=== PATIENT | female | born 1945 | race Caucasian/White ===

== ENCOUNTER 2019-06-01 07:09 | Emergency (ER) | payer MEDICARE ==
[~2019-06-01] VITALS: Ht 157.5 cm; Wt 86.2 kg
--- OUTSIDE RECORDS SUMMARY | 2019-06-01 07:12 | XMS REPORT | Continuity of Care Document ---
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 Role Phone [employer] Unavailable Unavailable Problems Problem Status Onset Date Classification Date Reported Comments Source Simple obesity Active Problem 05/20/2019 [facility] Medications Medication Details Route Status Patient Instructions Ordering Provider Order Date Source amLODIPine 10 mg oral tablet 10 mg=1 tab, PO, Daily, # 30 tab, 0 Refill(s) Active 03/03/2019 [facility] solifenacin 5 mg oral tablet 5 mg=1 tab, PO, Daily, 0 Refill(s) Active 03/03/2019 [facility] lisinopril 5 mg oral tablet 5 mg=1 tab, PO, Daily, 0 Refill(s) Active 03/03/2019 [facility] levothyroxine 112 mcg (0.112 mg) oral tablet 112 microgram=1 tab, PO, Daily, 0 Refill(s) Active 03/03/2019 [facility] ibuprofen 800 mg oral tablet 800 mg=1 tab, PO, TID, 0 Refill(s) Active 03/03/2019 [facility] denosumab 60 mg/mL subcutaneous solution 60 mg=1 mL, SUB- Q, ONCE, Repeat every 6 months, # 1 mL, 0 Refill(s) Active 03/03/2019 [facility] albuterol 90 mcg/inh inhalation aerosol 2 puff, INHALATION, QID, 0 Refill(s) Active 03/03/2019 [facility] FLUoxetine 20 mg oral capsule 20 mg=1 cap, PO, Daily, # 30 cap, 0 Refill(s) Active 03/03/2019 [facility] Allergies, Adverse Reactions, Alerts Substance Category Reaction Severity Reaction type Status Date Reported Comments Source No Known Medication Allergies Assertion Drug allergy [facility] Immunizations No Data Provided for This Section Results No Data Provided for This Section Pathology Reports No Data Provided for This Section Diagnostic Reports Report Value Date Source Bone Density DXA [employer] MA BONE DENSITY ASSESSMENT: 05/15/2019 CLINICAL DATA: Post menopausal. M81.0 Age related osteoporosis without current pathological fracture. M81.0 Age-Related Osteoporosis Without Current Pathological Fracture/M81.0 FINDINGS: Bone density evaluation was performed 05/15/2019 on the right femur neck using a Hologic unit. The BMD average for the exam is 0.484 g/cm2. The T-score is -3.30 and the Z-score is -1.20. This matches the World Health Organization's criteria for osteoporosis and places the patient at a high risk for fracture. An additional bone density evaluation was performed 05/15/2019 on the left femur neck using a Hologic unit. The BMD average for the exam is 0.524 g/cm2. The T- score is -2.90 and the Z-score is -0.90. This matches the World Health Organization's criteria for osteoporosis and places the patient at a high risk for fracture. An additional bone density evaluation was performed 05/15/2019 on the right hip using a Hologic unit. The BMD average for the exam is 0.682 g/cm2. The T-score is -2.10 and the Z-score is -0.40. This matches the World Health Organization's criteria for osteopenia and places the patient at a medium risk for fracture. An additional bone density evaluation was performed 05/15/2019 on the left hip using a Hologic unit. The BMD average for the exam is 0.708 g/cm2. The T-score is -1.90 and the Z-score is -0.20. This matches the World Health Organization's criteria for osteopenia and places the patient at a medium risk for fracture. An additional bone density evaluation was performed 05/15/2019 on the AP L1-L4 region of spine using a Hologic unit. The BMD average for the exam is 0.859 g/cm2. The T-score is -1.70 and the Z-score is 0.60. This matches the World Health Organization's criteria for osteopenia and places the patient at a medium risk for fracture. IMPRESSION: OSTEOPOROSIS Patient is at high risk for fracture. Patient consult w/primary care provider is recommended. Dangelo Loza D.O., mdl/mayuri:05/17/2019 09:33:35 Lunch Cook(s): Alem Huff [facility] [place] 05/15/2019 [facility] [place] Consultation Notes No Data Provided for This Section Discharge Summaries No Data Provided for This Section History and Physicals No Data Provided for This Section Vital Signs Vital Sign Value Date Comments Source BMI Calculated 35.63 04/23/2019 [facility] Height 154.94 cm 04/23/2019 [facility] Weight 85.545 04/23/2019 [facility] Respitory Rate 17 04/23/2019 [facility] Temperature Oral (F) 97.9 F 04/23/2019 [facility] Systolic (mm Hg) 116 04/23/2019 [facility] Diastolic (mm Hg) 72 04/23/2019 [facility] Heart Rate 63 04/23/2019 [facility] BMI Calculated 34.53 03/03/2019 [facility] Weight 85.625 03/03/2019 [facility] Temperature Oral (F) 98.1 F 03/03/2019 [facility] Respitory Rate 17 03/03/2019 [facility] Heart Rate 65 03/03/2019 [facility] Systolic (mm Hg) 138 03/03/2019 [facility] Diastolic (mm Hg) 67 03/03/2019 [facility] Height 157.48 cm 03/03/2019 [facility] Encounters Location Location Details Encounter Type Encounter Number Reason For Visit Attending Provider ADM Date DC Date Status Source Outpatient [id number] Bing Regalado 03/03/2019 [facility] [place] [facility] Outpatient [id number] Bing Regalado 03/03/2019 03/04/2019 [facility] [place] [facility] Between Visit [id number] 03/07/2019 03/08/2019 [facility] Outpatient [id number] Bing Saderek 04/23/2019 [facility] [place] [facility] Outpatient [id number] Bing Regalado 04/23/2019 04/24/2019 [facility] Group [facility] [place] [facility] [id number] Bing Regalado 05/15/2019 05/16/2019 [facility] [place] [facility] [place] [facility] Between Visit [id number] 05/18/2019 05/19/2019 [facility] Procedures Procedure Code Date Perfomer Comments Source Bone density scan [id number] [facility] Bone density scan [id number] [facility] [place] Assessment and Plan No Data Provided for This Section Plan of Care No Data Provided for This Section Social History Social History Date Source Social History TypeResponse Smoking Status Never smoker; Exposure to Tobacco Smoke None; Cigarette Smoking Last 365 Days No; Reg Smoking Cessation Counseling No entered on: 04/23/19 04/23/2019 [facility] Social History TypeResponse Smoking Status Never smoker; Exposure to Tobacco Smoke None; Cigarette Smoking Last 365 Days No; Reg Smoking Cessation Counseling No entered on: 04/23/19 04/23/2019 [facility] Family History No Data Provided for This Section Advance Directives No Data Provided for This Section Functional Status No Data Provided for This Section
--- OUTSIDE RECORDS SUMMARY | 2019-06-01 07:12 | XMS REPORT | Summary of Care ---
Author Author [facility] Primary Care [facility] Address Unknown Phone Unavailable Encounter HQ Mosher_amada(GLENN) [id number] Date(s): 03/03/19 - 03/03/19 [facility] [place] [facility] [address] [address] [place] [address]- [phone] Discharge Disposition: Home or Self Care Attending Physician: Bing Regalado MD Vital Signs Most recent to 1 oldest [Reference Range]: Height 157.48 cm (03/03/19 8:46 AM) Temperature Oral 98.1 DegF [96.4-99.1 DegF] (03/03/19 8:46 AM) Blood Pressure 138/67 mmHg [90-140/60-90 mmHg] (03/03/19 8:46 AM) Respiratory Rate 17 BRMIN [14-20 BRMIN] (03/03/19 8:46 AM) Peripheral Pulse 65 bpm Rate [60-100 bpm] (03/03/19 8:46 AM) Weight 85.625 kg (03/03/19 8:46 AM) Body Mass Index 34.53 m2 (03/03/19 8:46 AM) Problem List Condition Effective Dates Status Health Status Informant Simple Active obesity(Confirmed) Allergies, Adverse Reactions, Alerts No Known Medication Allergies Medications albuterol 90 mcg/inh inhalation aerosol 2 puff, INHALATION, QID, 0 Refill(s) Start Date: 03/03/19 Status: Ordered amLODIPine 10 mg oral tablet 10 mg=1 tab, PO, Daily, # 30 tab, 0 Refill(s) Start Date: 03/03/19 Status: Ordered denosumab 60 mg/mL subcutaneous solution 60 mg=1 mL, SUB-Q, ONCE, Repeat every 6 months, # 1 mL, 0 Refill(s) Start Date: 03/03/19 Status: Ordered FLUoxetine 20 mg oral capsule 20 mg=1 cap, PO, Daily, # 30 cap, 0 Refill(s) Start Date: 03/03/19 Status: Ordered ibuprofen 800 mg oral tablet 800 mg=1 tab, PO, TID, 0 Refill(s) Start Date: 03/03/19 Status: Ordered levothyroxine 112 mcg (0.112 mg) oral tablet 112 microgram=1 tab, PO, Daily, 0 Refill(s) Start Date: 03/03/19 Status: Ordered lisinopril 5 mg oral tablet 5 mg=1 tab, PO, Daily, 0 Refill(s) Start Date: 03/03/19 Status: Ordered solifenacin 5 mg oral tablet 5 mg=1 tab, PO, Daily, 0 Refill(s) Start Date: 03/03/19 Status: Ordered Results No data available for this section Immunizations No data available for this section Procedures Procedure Date Related Diagnosis Body Site Status Bone density scan Completed Social History Social History Type Response Smoking Status Never smoker; Exposure to Tobacco Smoke None; Cigarette Smoking Last 365 Days No; Reg Smoking Cessation Counseling No entered on: 03/03/19 Assessment and Plan No data available for this section
--- OUTSIDE RECORDS SUMMARY | 2019-06-01 07:12 | XMS REPORT | Summary of Care ---
Author Author [facility] Primary Care [place] [facility] Organization [facility] Primary [facility] [place] [facility] Address Unknown Phone Unavailable Encounter HQ Encntr_alipatricia(FIN) [id number] Date(s): 04/23/19 - 04/23/19 [facility] Primary [place] [facility] [address] [address] [place] [address]- [phone] Discharge Disposition: Home or Self Care Attending Physician: Bing Regalado MD Vital Signs Most recent to 1 oldest [Reference Range]: Height 154.94 cm (04/23/19 8:06 AM) Temperature Oral 97.9 DegF [96.4-99.1 DegF] (04/23/19 8:06 AM) Blood Pressure 116/72 mmHg [90-140/60-90 mmHg] (04/23/19 8:06 AM) Respiratory Rate 17 BRMIN [14-20 BRMIN] (04/23/19 8:06 AM) Peripheral Pulse 63 bpm Rate [60-100 bpm] (04/23/19 8:06 AM) Weight 85.545 kg (04/23/19 8:06 AM) Body Mass Index 35.63 m2 (04/23/19 8:06 AM) Problem List Condition Effective Dates Status Health Status Informant Simple Active obesity(Confirmed) Allergies, Adverse Reactions, Alerts No Known Medication Allergies Medications No Known Medications Results No data available for this section Immunizations No data available for this section Procedures Procedure Date Related Diagnosis Body Site Status Bone density scan Completed Social History Social History Type Response Smoking Status Never smoker; Exposure to Tobacco Smoke None; Cigarette Smoking Last 365 Days No; Reg Smoking Cessation Counseling No entered on: 04/23/19 Assessment and Plan No data available for this section
--- OUTSIDE RECORDS SUMMARY | 2019-06-01 07:12 | XMS REPORT | Summary of Care ---
Author Author [facility] Primary Care [facility] Organization [facility] Primary [facility] Address Unknown Phone Unavailable Encounter HQ Encntr_alias(FIN) [id number] Date(s): 05/17/19 - 05/18/19 [facility] Primary [facility] [address] [address] [place] [address]- [phone] Vital Signs No data available for this section Problem List Condition Effective Dates Status Health Status Informant Simple Active obesity(Confirmed) Allergies, Adverse Reactions, Alerts No Known Medication Allergies Medications No data available for this section Results No data available for this section [...]
--- OUTSIDE RECORDS SUMMARY | 2019-06-01 07:12 | XMS REPORT | Summary of Care ---
Author Author [facility] Primary Care [facility] Organization [facility] Address Unknown Phone Unavailable Encounter HQ Encntr_alias(FIN) [id number] Date(s): 03/07/19 - 03/08/19 [facility] [address] [address] [place] [address]- [phone] Vital Signs No data available for this [...]
--- OUTSIDE RECORDS SUMMARY | 2019-06-01 07:12 | XMS REPORT | Summary of Care ---
Author Author [facility] [place] [facility] [place] Address Unknown Phone Unavailable Encounter HQ Encntr_alias(FIN) [id number] Date(s): 05/15/19 - 05/15/19 [facility] [place] [address] [place] [facility] [place] [address]- Discharge Disposition: Home or Self Care Attending Physician: Bing Regalado MD Referring Physician: Bing Regalado MD Vital Signs No data available for this [...]
[2019-06-01] MEDS ORDERED: LEVOTHYROXINE50 MCG PO (07:33)
[2019-06-01] MEDS ORDERED: VITAMIN D400 UNIT PO (07:33)
[2019-06-01] MEDS ORDERED: LISINOPRIL5 MG (07:33)
[2019-06-01 07:58] VITALS: BP 140/68
--- NOTE | 2019-06-01 08:03 | Diagnostic Imaging Report ---
Exam: Left foot series; 2 views History: Recent fracture of undisclosed toes with continued pain Comparison: None available Findings: Oblique fractures of the proximal phalanx of the first and second digits are noted. No appreciable periosteal reaction seen. There is a screw within the distal aspect of the first metatarsal compatible with old bunion surgery. Impression: Oblique fractures of the proximal phalanx of the first and second digits. Signed by: Dr. Mike Lux DO on 06/01/2019 8:00 AM
== END 2019-06-01 07:55 | disposition home or self-care (01) ==
LOC: FSED 07:09
DX: S92.412A Displaced fracture of proximal phalanx of left great toe, initial encounter for closed fracture (principal); X58.XXXA Exposure to other specified factors, initial encounter; Y92.019 Unspecified place in single-family (private) house as the place of occurrence of the external cause
CPT/HCPCS: 99283